=== PATIENT | male | born 1965 | race Caucasian/White ===

== ENCOUNTER 2018-01-21 16:19 | Emergency (ER) | payer BC, OTHER ==
[2018-01-21 17:19] VITALS: BP 115/79
[2018-01-21] MEDS ORDERED: predniSONE TAB* 20 MG PO ONE (17:43)
[2018-01-21] MEDS ORDERED: Ketorolac INJ* 60 MG/2 ML VIAL IM ONE (17:43)
--- NOTE | 2018-01-21 17:46 | UC ---
Back Pain HPI - HPI Summary HPI Summary: P raji presents with sudden on set of left side low back pain. Pt states that is his "sciatica acting up again." . Pt has hx of sciatica and has RX for gabapentin, flexeril and ibuprofen. Pt states he took gabapentin and flexeril and inbuprofen prior to arrival at . Pt states pain has not improved. Has appointment with PCP tomorrow. - History of Current Complaint Chief Complaint: UCBackPain Stated Complaint: BACK COMPLAINT Time Seen by Provider: 01/21/18 17:31 Hx Obtained From: Patient Onset/Duration: Sudden Onset, Still Present, Worse Since - onset Timing: Constant Severity Initially: Moderate Severity Currently: Severe Pain Intensity: 10 Back Pain: Is Discrete @ - left low back/upper buttock, Radiates To - posterior left leg Character: Sharp, Dull, Aching, Stiffness, Burning Aggravating Factor(s): Movement, Lifting, Bending, Walking Alleviating Factor(s): Nothing Associated Signs And Symptoms: Positive: Weakness - Risk Factors AAA Risk Factors: Negative TAD Risk Factors: Negative Cauda Equina Risk Factors: Negative Epidural Abscess Risk Factors: Negative - Allergies/Home Medications Allergies/Adverse Reactions: Allergies Allergy/AdvReac Type Severity Reaction Status Date / Time No Known Allergies Allergy Verified 01/21/18 17:19 Home Medications: Home Medications Aspirin [Aspirin Childrens 81 MG] 81 mg PO DAILY 01/21/18 [History Confirmed ] Cyclobenzaprine TAB* [Flexeril 10 MG TAB*] 10 mg PO TID PRN 01/21/18 [History Confirmed 01/21/18] Gabapentin TAB(NF) [Neurontin 600 mg TAB(NF)] 600 mg PO TID 01/21/18 [History Confirmed 01/21/18] Simvastatin TAB(NF) [Zocor 20 MG (NF)] 20 mg PO DAILY 01/21/18 [History Confirmed 01/21/18] PMH/Surg Hx/FS Hx/Imm Hx Previously Healthy: Yes Endocrine History: Dyslipidemia Cardiovascular History: Hypertension - Surgical History Surgical History: None - Family History Known Family History: Positive: Cardiac Disease - Social History Occupation: Employed Full-time Lives: With Family Alcohol Use: None Substance Use Type: None Smoking Status (MU): Heavy Every Day Tobacco Smoker Type: Cigarettes Amount Used/How Often: 1 ppd Have You Smoked in the Last Year: Yes - Immunization History Most Recent Influenza Vaccination: 2014 Review of Systems Constitutional: Negative Skin: Negative Eyes: Negative ENT: Negative Respiratory: Negative Cardiovascular: Negative Gastrointestinal: Negative Genitourinary: Negative Motor: Decreased ROM - low back Neurovascular: Negative Musculoskeletal: Arthralgia, Decreased ROM, Myalgia Neurological: Negative Psychological: Negative Is Patient Immunocompromised?: No All Other Systems Reviewed And Are Negative: Yes Physical Exam Triage Information Reviewed: Yes Appearance: Pain Distress Vital Signs: Initial Vital Signs Temp 97.8 F 01/21/18 17:13 Pulse 77 01/21/18 17:13 Resp 18 01/21/18 17:13 BP 115/79 01/21/18 17:13 Pulse Ox 96 01/21/18 17:13 Vital Signs Reviewed: Yes Eye Exam: Normal ENT Exam: Normal ENT: Positive: Hearing grossly normal Neck exam: Normal Respiratory: Positive: No respiratory distress Musculoskeletal Exam: Other Musculoskeletal: Positive: ROM Limited @ - left side lower back. c/o point tenderness at sciatica Neurological Exam: Normal Neurological: Positive: Alert Psychological Exam: Normal Psychological: Positive: Normal Response To Family Skin Exam: Normal Back Pain Course/Dx - Differential Dx/Diagnosis Differential Diagnosis/HQI/PQRI: Herniated Disc, Strain Provider Diagnoses: left sciatica Discharge - Sign-Out/Discharge Documenting (check all that apply): Patient Departure All imaging exams completed and their final reports reviewed: No Studies - Discharge Plan Condition: Stable Disposition: HOME Prescriptions: predniSONE TAB* [Deltasone 20 MG TAB*] 20 mg PO DAILY #4 tab Patient Education Materials: Sciatica (ED), Lower Back Exercises (ED) Referrals: Ro Becerril MD [Primary Care Provider] - 01/22/18 Additional Instructions: Please keep your scheduled appointment with your PCP . - Billing Disposition and Condition Condition: STABLE Disposition: Home Attestation Statement User Type: Provider - I was available for consult. This patient was seen by the KELVIN. The patient was not presented to, seen by, or examined by me. -Sadia
== END 2018-01-21 18:11 | disposition home or self-care (01) ==
LOC: UCCORT 16:19
DX: M54.32 Sciatica, left side (principal); I10 Essential (primary) hypertension; E78.5 Hyperlipidemia, unspecified; F17.210 Nicotine dependence, cigarettes, uncomplicated
CPT/HCPCS: 96372; 99212; G0463; J1885; J7512